=== PATIENT | female | born 1990 | race Two or more races ===

== ENCOUNTER 2021-06-26 23:25 | Emergency (ER) | payer OTHER ==
[~2021-06-26] VITALS: Ht 165.1 cm; Wt 50.8 kg
--- NOTE | 2021-06-27 00:28 | NUR ---
AMRIANO - FRIEND [phone]
--- NOTE | 2021-06-27 04:57 | NUR ---
Patient discharged to home in stable condition. Written and verbal after care instructions given. Patient verbalizes understanding of instruction.
[2021-06-27 04:58] VITALS: BP 110/60
== END 2021-06-27 04:58 | disposition home or self-care (01) ==
LOC: ER 23:33
DX: F10.129 Alcohol abuse with intoxication, unspecified (principal); Y90.9 Presence of alcohol in blood, level not specified
CPT/HCPCS: 82962-TC